=== PATIENT | female | born 1995 | race Caucasian/White ===

== ENCOUNTER 2018-11-17 15:18 | Emergency (ER) | payer SELFPAY ==
[2018-11-17 15:43] VITALS: BP 124/83; PULSE 67; TEMP 98.6; BMI 23.0
--- NOTE | 2018-11-17 16:03 | PDOC ---
Attending Attestation - Resident Resident Name: Claire Talavera - HPI HPI: 11/20/18 01:47 Pt presents to the ED complaining of suprapubic pain and very mild flank pain after unprotected sexual intercourse. Denies nausea or vomiting or dysuria. - Physicial Exam PE: 11/20/18 01:52 Agree with resident exam. Abdomen is soft, non tender, non distended without guarding or rebound. Patient is well appearing and in no acute distress. - Medical Decision Making 11/20/18 01:53 Pt presents to the ED complaining of suprapubic pain after unprotected intercourse. pelvic exam is unremarkable, but given history, will treat for GC. Will check GC and Ua, likely discharge home.
[2018-11-17 16:21] LABS: HCG,QUALITATIVE URINE NEGATIVE
[2018-11-17 16:24] LABS: URINE APPEARANCE Clear; URINE BILIRUBIN 1+ (NEGATIVE); URINE COLOR Yellow; URINE GLUCOSE (UA) Negative (NEGATIVE); URINE KETONE Trace (NEGATIVE); URINE LEUK ESTERASE TRACE (NEGATIVE); URINE NITRITE Negative (NEGATIVE); URINE PROTEIN 1+ (NEGATIVE)
[2018-11-17] MEDS ORDERED: ACETAMINOPHEN 325 MG TABLET (FP) PO ONE (16:49)
[2018-11-17] MEDS ORDERED: ACETAMINOPHEN 325 MG TABLET (FP) ONE (16:54)
[2018-11-17 17:05] LABS: EPI CELLS 2+ /HPF; URINE RBC 0-2 /hpf (0-3)
[2018-11-17 17:06] LABS: CALCIUM OXALATE CRYSTALS MODERATE /hpf (NONE SEEN); URINE MUCUS 2+
[2018-11-17] MEDS ORDERED: AZITHROMYCIN 500 MG TABLET PO ONE (17:06)
--- NOTE | 2018-11-17 17:16 | PDOC ---
History of Present Illness - General Chief Complaint: Pain Stated Complaint: LEFT FLANK PAIN THEN AFTER EATING PAIN WORSEN Time Seen by Provider: 11/17/18 15:52 History Source: Patient Exam Limitations: No Limitations - History of Present Illness Initial Comments: 11/18/18 09:17 23 year old woman with no past medical history who presents with L sided stabbing flank pain rated 7.5/10 radiating into the mid abdomen onset at 1400 today. The patient also complains of 7 days of whitish, clear, odorous vaginal discharge that started after sexual intercourse while in the [place]. The patient reports that she has had vaginal odorous discharge in the past that had cleared with monostat. The patient denies any fever, nausea, chest pain, shortness of breath, dysuria, hematuria, diarrhea or constipation. She has no other complaints at bedside. Past History - Past Medical History Allergies/Adverse Reactions: Allergies Allergy/AdvReac Type Severity Reaction Status Date / Time No Known Allergies Allergy Verified 11/17/18 15:20 Home Medications: Ambulatory Orders Doxycycline Hyclate 100 mg PO BID #14 tablet 11/17/18 COPD: No Thyroid Disease: (denies) - Reproductive History Is Patient Now?: No (#): 0 - Immunization History Immunization Up to Date: Yes (FLU ) - Suicide/Smoking/Psychosocial Hx Smoking History: Never smoked Number of Cigarettes Smoked Daily: 0 Information on smoking cessation initiated: No Hx Alcohol Use: Yes (social) Drug/Substance Use Hx: No Substance Use Type: None Review of Systems - Review of Systems Able to Perform ROS?: Yes Is the patient limited Welsh proficient: No Constitutional: No: Chills, Diaphoresis, Fever Respiratory: No: Cough, Orthopnea, Shortness of Breath Cardiac (ROS): No: Chest Pain, Palpitations, Syncope, Chest Tightness ABD/GI: No: Constipated, Diarrhea, Nausea, Vomiting : No: Burning, Dysuria, Incontinence Musculoskeletal: No: Joint Pain Neurological: No: Headache, Numbness, Tingling *Physical Exam - Vital Signs Last Vital Signs Temp Pulse Resp BP Pulse Ox 98.6 F 67 16 124/83 99 11/17/18 15:20 11/17/18 15:20 11/17/18 15:20 11/17/18 15:20 12/20/18 15:20 - Physical Exam Comments: 11/18/18 14:16 GENERAL: Awake, alert, and fully oriented, in no acute distress HEAD: No signs of trauma, normocephalic, atraumatic EYES: EOMI, sclera anicteric, conjunctiva clear ENT: oropharynx clear without exudates. Moist mucosa NECK: Normal ROM LUNGS: No distress, speaks full sentences, clear to auscultation bilaterally HEART: Regular rate and rhythm, normal S1 and S2, no murmurs, rubs or gallops, peripheral pulses normal and equal bilaterally. ABDOMEN: Soft, + slight suprapubric tenderness to palpation, normoactive bowel sounds. No guarding, no rebound. No masses BACK: no CVA tenderness EXTREMITIES : Normal inspection, Normal range of motion, no edema. No clubbing or cyanosis. NEUROLOGICAL: Cranial nerves II through XII grossly intact. Normal speech, normal gait, no focal sensorimotor deficits SKIN: Warm, Dry, normal turgor, no rashes or lesions noted PELVIC: thickened white fluid in the vaginal canal turner, closed os, no cervical motion tenderness. Moderate Sedation - Procedure Monitoring Vital Signs: Procedure Monitoring Vital Signs Temperature 98.6 F 11/17/18 15:20 Pulse Rate 67 11/17/18 15:20 Respiratory Rate 16 11/17/18 15:20 Blood Pressure 124/83 11/17/18 15:20 O2 Sat by Pulse Oximetry (%) 99 11/17/18 15:20 Medical Decision Making - Medical Decision Making 11/18/18 09:23 23 year old woman with no past medical history who presents with L sided stabbing flank pain rated 7.5/10 radiating into the mid abdomen onset at 1400 today. The patient also complains of 7 days of whitish, clear, odorous vaginal discharge that started after sexual intercourse while in the [place]. The patient reports that she has had vaginal odorous discharge in the past that had cleared with monostat. ED Course: Patient with history concerning for STD vs BV vs candidiasis vs UTI vs pyelonephritis UA - pending G/C pending Patients requests empiric treatment for STDs. Will treat prophylactically with rocephin, azithro and doxy course. Will give patient call back for urine and G/C labwork and will send medications as necessary. Patient will follow up with Patient stable for discharge. Informed of all lab and imaging results. Given follow up instructions and strict return precautions. Patient expressed understanding and agree to plan. 11/18/18 18:25 *DC/Admit/Observation/Transfer Diagnosis at time of Disposition: Vaginal discharge, Abdominal pain - Discharge Dispostion Disposition: HOME Condition at time of disposition: Stable Decision to Admit order: No - Prescriptions Prescriptions: Doxycycline Hyclate 100 mg PO BID #14 tablet - Referrals - Patient Instructions Additional Instructions: You were seen in the ED for complaints of abdominal pain and vaginal discharge. In the ED you were evaluated with labwork. Your urinalysis did not show any acute findings and you will receive a call back about any other pending labs. There does not appear to be an acute need for immediate hospitalization. You were given a prescription for Doxycycline antibiotics and are advised to take medications as directed. You are advised to follow up with your Primary Care Physician within 1 week. Return to the ED immediately if you experience worsening vaginal discharge, worsening abdominal pain, dysuria, blood in the urine or stool, fevers, pelvic pain or pressure, shortness of breath or chest pain. - Post Discharge Activity
[2018-11-17] MEDS ORDERED: AZITHROMYCIN 500 MG TABLET ONE (17:22)
== END 2018-11-17 18:01 | disposition home or self-care (01) ==
LOC: FER 15:18
DX: N89.8 Other specified noninflammatory disorders of vagina (principal); R10.84 Generalized abdominal pain
CPT/HCPCS: 36415; 81003; 81015; 84703; 87086; 87210; 87491; 87591; 99283-25

== ENCOUNTER 2019-07-29 05:13 | Emergency (ER) | payer SELFPAY ==
[2019-07-29 05:32] VITALS: BP 111/83; PULSE 68; TEMP 98.7; BMI 23.0
--- NOTE | 2019-07-29 05:32 | PDOC ---
History of Present Illness - General Chief Complaint: Sore Throat Stated Complaint: SORE THROAT Time Seen by Provider: 07/29/19 05:31 History Source: Patient - History of Present Illness Initial Comments: 07/29/19 06:59 sore throat Timing/Duration: 24 hours Severity: moderate Modifying Factors: worse with: medication Associated Symptoms: denies: fever/chills, shortness of breath Past History - Past Medical History Allergies/Adverse Reactions: Allergies Allergy/AdvReac Type Severity Reaction Status Date / Time No Known Allergies Allergy Verified 11/17/18 15:20 Home Medications: Ambulatory Orders Acetaminophen [Tylenol -] 1,000 mg PO PRN PRN 07/29/19 Norethindrone-E.estradiol-Iron [Lo Loestrin Fe 1-10 Tablet] 1 tab PO DAILY 07/29 COPD: No Thyroid Disease: (denies) Comment:: 07/29/19 07:00 denies - Reproductive History (#): 0 - Immunization History Immunization Up to Date: Yes (FLU ) - Suicide/Smoking/Psychosocial Hx Smoking History: Never smoked Number of Cigarettes Smoked Daily: 0 Hx Alcohol Use: Yes (social) Drug/Substance Use Hx: No Substance Use Type: None Review of Systems - Review of Systems All Other Systems: Reviewed and Negative *Physical Exam - Vital Signs Last Vital Signs Temp Pulse Resp BP Pulse Ox 98.7 F 68 16 111/83 100 07/29/19 05:15 07/29/19 05:15 07/29/19 05:15 07/29/19 05:15 07/29/19 05:15 - Physical Exam General Appearance: Yes: Nourished. No: Apparent Distress HEENT: positive: Tonsillar Exudate, Tonsillar Erythema Neck: negative: Lymphadenopathy (R), Lymphadenopathy (L) Respiratory/Chest: positive: Lungs Clear Integumentary: positive: Normal Color Neurologic: positive: Fully Oriented Medical Decision Making - Medical Decision Making 07/29/19 07:00 strep throat abx analgesia *DC/Admit/Observation/Transfer Diagnosis at time of Disposition: Strep throat - Discharge Dispostion Disposition: HOME Condition at time of disposition: Stable - Referrals - Patient Instructions Printed Discharge Instructions: DI for Strep Throat - Post Discharge Activity
[2019-07-29] MEDS ORDERED: KETOROLAC TROMETHAMINE 60 MG/2 ML VIAL IM ONE (05:37)
[2019-07-29] MEDS ORDERED: LIDOCAINE VISCOUS 2% ORAL/TOP 20 ML UNIT-DOSE CUP MM ONE (05:38)
[2019-07-29] MEDS ORDERED: LIDOCAINE VISCOUS 2% ORAL/TOP 20 ML UNIT-DOSE CUP ONE (05:40)
[2019-07-29] MEDS ORDERED: KETOROLAC TROMETHAMINE 60 MG/2 ML VIAL ONE (05:40)
[2019-07-29] MEDS ORDERED: PENICILLIN G BENZATHINE 1,200,000 UNIT/2 ML PFS IM ONE ×2 (06:30→06:33)
== END 2019-07-29 06:45 | disposition home or self-care (01) ==
LOC: FER 05:13
PROC: 3E0333Z Introduction of Anti-inflammatory into Peripheral Vein, Percutaneous Approach (ICD-10-PCS; principal; 2019-07-29)
PROC: 3E03329 Introduction of Other Anti-infective into Peripheral Vein, Percutaneous Approach (ICD-10-PCS; 2019-07-29)
DX: J02.0 Streptococcal pharyngitis (principal)
CPT/HCPCS: 87070; 87077; 87880; 99282-25

== ENCOUNTER 2021-04-23 09:25 | Emergency (ER) | payer OTHER ==
[2021-04-23 09:44] VITALS: BP 117/73; PULSE 67; TEMP 98.2; BMI 23.0
[2021-04-23] MEDS ORDERED: BACITRACIN 15 GM TUBE TOPICAL OINTMENT TP ONE (09:47)
[2021-04-23] MEDS ORDERED: IBUPROFEN 400 MG TABLET (FP) PO ONE ×2 (09:47→09:51)
== END 2021-04-23 10:04 | disposition home or self-care (01) ==
LOC: JER 09:25
DX: S61.211A Laceration without foreign body of left index finger without damage to nail, initial encounter (principal)
CPT/HCPCS: 99283-25

== ENCOUNTER 2024-10-21 07:12 | Emergency (ER) | payer OTHER ==
[2024-10-21 07:18] VITALS: BP 115/83; PULSE 82; RESP 20; TEMP 98.6; BMI 30.1
[2024-10-21] MEDS ORDERED: IBUPROFEN 600 MG TABLET (FP) PO ONE (07:37)
[2024-10-21] MEDS: IBUPROFEN 600 MG TABLET (FP) PO ONE (07:42)
== END 2024-10-21 09:28 | disposition home or self-care (01) ==
LOC: JERFT 07:12
DX: S63.501A Unspecified sprain of right wrist, initial encounter (principal); W01.198A Fall on same level from slipping, tripping and stumbling with subsequent striking against other object, initial encounter
CPT/HCPCS: 73110-TC-RT-FY; 73130-TC-RT-FY; 99283-25